=== PATIENT | male | born 1995 | race Caucasian/White ===

== ENCOUNTER 2020-04-08 20:45 | Inpatient (IN) | payer SELFPAY ==
[2020-04-08 20:49] VITALS: BMI 23.1
--- NOTE | 2020-04-08 20:57 | ECG_ITS ---
Measurements Intervals [place] Rate: 103 P: 76 NE: 136 QRS: 16 QRSD: 112 T: 42 QT: 337 QTc: 442 SINUS TACHYCARDIA INCOMPLETE RIGHT BUNDLE BRANCH BLOCK [90+ ms QRS DURATION, TERMINAL R IN V1/V2, 40+ ms S IN I/aVL/V4/V5/V6] ABNORMAL RHYTHM ECG Compared to ECG 04/17/2019 17:53:14 Sinus rhythm no longer present Sinus arrhythmia no longer present Electronically Signed On 04-09-2020 20:53:16 CDT by лОег Bangura M.D. [email or web address]
--- NOTE | 2020-04-08 20:57 | XR_ITS ---
WS: [id number] Portable AP upright chest, 04/08/2020 Clinical Data: Psychiatric clearance, overdose Comparison: Vertebral chest, 04/17/2019. Findings: No nodules, masses or effusions are seen. The heart is normal. The pulmonary vascularity is not increased. No pneumonia or pneumothorax is seen. XR/XR chest 1V portable 52100 Impression: Negative chest.
[2020-04-08 21:00] VITALS: BP 114/54; PULSE 114; RESP 17; O2SAT 97
[2020-04-08 21:54] LABS: Basophils # 0.1 10^3/uL (0.0-0.1); Basophils % 0.6 %; Eosinophils # 0.2 10^3/uL (0.0-0.8); Eosinophils % 2.4 %; Hemoglobin 15.2 g/dL (11.7-16.6); Lymphocytes # 2.5 10^3/uL (0.8-4.8); Lymphocytes % 30.1 %; Mean Corpuscular Hemoglobin 32.7 pg (28.0-34.0); Mean Corpuscular Volume 98.9 fL (80-94); Mean Platelet Volume 10.7 fL (7.4-10.4); Monocytes # 0.5 10^3/uL (0.2-0.9); Monocytes % 6.5 %; Neutrophils # 4.9 10^3/uL (1.8-7.7); Neutrophils % 59.4 %; Nucleated Red Blood Cells % 0 %; Platelet Count 267 10^3/cmm (130-400); Red Blood Count 4.65 10^6/uL (4.1-5.3); Red Cell Distribution Width 11.8 % (12.1-15.1); White Blood Count 8.2 10^3/uL (4.0-10.0)
--- NOTE | 2020-04-08 22:01 | W.ED.OVERDOS ---
HPI - Overdose General: Chief Complaint: Overdose Stated Complaint: POSSIBLE OD Time Seen by Provider: 04/08/20 20:50 Source: patient and EMS Limitations: other (Patient not cooperative) History of Present Illness: HPI Narrative: Marco A is a 24-year-old male who comes in after an overdose. He took an unknown amount of sleep aid in an effort to hurt himself. He states he was arguing with his girlfriend and became upset and did this in an effort to kill himself. He admits to trying to kill himself once before with overdose. Patient admits to drinking alcohol today as well. He denies any other ingestions. Patient's history is very limited as he is agitated and not cooperative secondary to his emotional state. Review of Systems General: Reports: ROS unobtainable due to medical condition PFSH ED PFSH: Social History Smoking and tobacco status: current every day smoker Physical Exam Const: EXAM LIMITATIONS: behavioral limitations GENERAL APPEARANCE: lethargic and odor of alcohol detected ORIENTATION/CONSCIOUSNESS: Yes lethargic HENMT: COMMON NORMALS: normocephalic, atraumatic, external ears normal, EAC's normal and Normal external nose present HEAD & SCALP: normal to inspection, normocephalic and atraumatic FACE & SINUS: normal facial exam and face symmetric NOSE: Normal external nose present and Normal nares present EXTERNAL EAR: Yes external ears normal EXTERNAL AUDITORY CANAL: EAC's normal MOUTH: Normal oral and palatal mucosa present, lip normal and tongue normal Eye: COMMON NORMALS: Equal, round and reactive pupils present and conjunctivae normal GENERAL EYE: appearance normal, both eyes and all related structures ALIGNMENT: Yes alignment normal PERIORBITAL: periorbital findings normal EYELID: eyelids normal CONJUNCTIVA: Yes conjunctivae normal SCLERA: sclerae normal PUPIL: Yes Equal, round and reactive pupils present Neck/C-Spine: COMMON NORMALS: full ROM, no lymphadenopathy, supple, no meningeal signs and no JVD GENERAL: Yes normal visual inspection and Yes trachea midline Chest: COMMONS NORMALS: normal inspection of the chest and normal palpation of entire chest wall Resp: COMMON NORMALS: normal respiratory effort, No retractions and No use of accessory muscles EFFORT & INSPECTION: Yes able to speak in complete sentences and Yes symmetric chest movement AUSCULTATION: no crackles, no rales, no rhonchi and no wheezes Cardio: COMMON NORMALS: no JVD, regular rate, regular rhythm, S1 normal heart sound present and S2 normal heart sound present RATE: regular rate RHYTHM: regular rhythm HEART SOUNDS: S1 normal heart sound present, S2 normal heart sound present, no click, no gallops, no murmurs, no rubs and abnormal split S2 GI: COMMON NORMALS: Soft to palpation and No hepatosplenomegaly present PALPATION: Yes Soft to palpation, No Tenderness to palpation present (GI), No Guarding due to palpation present (GI), No Rigid due to palpation, Yes No hepatosplenomegaly present, No Hernia present, No Palpable mass present and No Pulsatile mass present : COMMON NORMALS: Yes no CVA tenderness BLADDER/KIDNEY EXAM: Yes no CVA tenderness Back/Pelvis: COMMON NORMALS: no CVA tenderness, thoracic and lumbar spine normal to inspection, no thoracic nor lumbar tenderness and thoraco-lumbar ROM normal Extremity: COMMON NORMALS: normal to inspection, full ROM, capillary refill normal, no joint enlargement, no clubbing, cyanosis or edema and no calf tenderness Neuro: COMMON NORMALS: CN's II-XII intact bilaterally, moves all extremities, no focal motor deficits and no sensory deficits noted SENSORIUM/ORIENTATION: Yes lethargic MENINGEAL SIGNS: Yes no meningeal signs SPEECH: speech normal Psych: ATTITUDE: Yes uncooperative and Yes agitated ACTIVITY/MOTOR BEHAVIOR: Yes restless SPEECH: Yes excessive and Yes loud MOOD & AFFECT: Yes tearful THOUGHT PROCESS: disorganized and confused Skin: COMMON NORMALS: no rashes or lesions noted, turgor normal, no jaundice, no petechiae and no mottling GENERAL SKIN EXAM: no rashes or lesions noted and turgor normal Course ED course: 1999 -Case reviewed with poison control and they have confirmed my suspicion that as the patient has taken so much Benadryl the absorption will be off secondary to slow GI motility. They concur with ICU admission and clearance overnight with psychiatric evaluation after. Vital Signs: Vital signs: Vital Signs Pulse Rate 102 H 04/08/20 22:03 Respiratory Rate 25 H 04/08/20 22:03 Blood Pressure 111/66 04/08/20 22:03 Pulse Oximetry 95 04/08/20 22:03 MDM - Overdose Lab Data: Labs: Lab Results 06/10/20 06/10/20 06/10/20 Range/Units 21:18 21:18 21:18 WBC 8.2 (4.0-10.0) 10^3/ uL RBC 4.65 (4.1-5.3) 10^6/u L Hgb 15.2 (11.7-16.6) g/dL Hct 46.0 (42.0-52.0) % MCV 98.9 H (80-94) fL MCH 32.7 (28.0-34.0) pg MCHC 33.0 (30.0-36.0) g/dL RDW 11.8 L (12.1-15.1) % Plt Count 267 (130-400) 10^3/c mm MPV 10.7 H (7.4-10.4) fL Neut % (Auto) 59.4 % Lymph % (Auto) 30.1 % [place] % (Auto) 6.5 % Eos % (Auto) 2.4 % Baso % (Auto) 0.6 % Neut # (Auto) 4.9 (1.8-7.7) 10^3/u L Lymph # (Auto) 2.5 (0.8-4.8) 10^3/u L [place] # (Auto) 0.5 (0.2-0.9) 10^3/u L Eos # (Auto) 0.2 (0.0-0.8) 10^3/u L Baso # (Auto) 0.1 (0.0-0.1) 10^3/u L Nucleated RBC % (a uto) 0 % Nucleated RBCs # 0.0 /100WBC Sodium 141 (136-145) mmol/L Potassium 3.9 (3.5-5.1) mmol/L Chloride 106 (98-107) mmol/L Carbon Dioxide 20 L (22-29) mmol/L Anion Gap 18.9 (5-19) BUN 9 (6-20) mg/dL Creatinine 0.9 (0.7-1.2) mg/dL GFR Calculation 104.6 (90-130) mL/min Glucose 109 (65-115) mg/dL Calculated Osmolal ity 289 (285-295) mOsm/k g Calcium 9.1 (8.5-10.5) mg/dL Magnesium 2.3 (1.7-2.3) mg/dL Total Bilirubin 0.2 (0.15-1.2) mg/dL AST 23 (0-40) U/L ALT 23 (0-41) U/L Alkaline Phosphata se 125 (40-130) IU/L Creatine Kinase 182 (39-308) U/L Total Protein 7.0 (6.6-8.7) g/dL Albumin 4.7 (3.5-5.2) g/dL Globulin 2.3 (1.3-4.6) g/dL TSH 0.93 (0.27-4.20) uIU/ mL Salicylates < 0.3 L (3-10) mg/dL Urine Opiates Scre en (Negative) ng/mL Acetaminophen < 5.0 L (10-30) ug/mL Ur Barbiturates Sc reen (Negative) ng/mL Phenytoin 0.8 L (10-20) ug/mL Valproic Acid 2.8 L (50-100) ug/mL Carbamazepine 2.0 L (4.0-12.0) ug/mL Ur Phencyclidine S crn (Negative) ng/mL Ur Amphetamines Sc reen (Negative) ng/mL U Benzodiazepines Scrn (Negative) ng/mL [place] 0.1 L (0.6-1.2) mmol/L Urine Cocaine Scre en (Negative) ng/mL U Marijuana (THC) Screen (Negative) ng/mL Ethyl Alcohol 64 H (0-10) mg/dL 04/08/20 Range/Units 22:02 WBC (4.0-10.0) 10^3/ uL RBC (4.1-5.3) 10^6/u L Hgb (11.7-16.6) g/dL Hct (42.0-52.0) % MCV (80-94) fL MCH (28.0-34.0) pg MCHC (30.0-36.0) g/dL RDW (12.1-15.1) % Plt Count (130-400) 10^3/c mm MPV (7.4-10.4) fL Neut % (Auto) % Lymph % (Auto) % [place] % (Auto) % Eos % (Auto) % Baso % (Auto) % Neut # (Auto) (1.8-7.7) 10^3/u L Lymph # (Auto) (0.8-4.8) 10^3/u L [place] # (Auto) (0.2-0.9) 10^3/u L Eos # (Auto) (0.0-0.8) 10^3/u L Baso # (Auto) (0.0-0.1) 10^3/u L Nucleated RBC % (a uto) % Nucleated RBCs # /100WBC Sodium (136-145) mmol/L Potassium (3.5-5.1) mmol/L Chloride (98-107) mmol/L Carbon Dioxide (22-29) mmol/L Anion Gap (5-19) BUN (6-20) mg/dL Creatinine (0.7-1.2) mg/dL GFR Calculation (90-130) mL/min Glucose (65-115) mg/dL Calculated Osmolal ity (285-295) mOsm/k g Calcium (8.5-10.5) mg/dL Magnesium (1.7-2.3) mg/dL Total Bilirubin (0.15-1.2) mg/dL AST (0-40) U/L ALT (0-41) U/L Alkaline Phosphata se (40-130) IU/L Creatine Kinase (39-308) U/L Total Protein (6.6-8.7) g/dL Albumin (3.5-5.2) g/dL Globulin (1.3-4.6) g/dL TSH (0.27-4.20) uIU/ mL Salicylates (3-10) mg/dL Urine Opiates Scre en Negative (Negative) ng/mL Acetaminophen (10-30) ug/mL Ur Barbiturates Sc reen Negative (Negative) ng/mL Phenytoin (10-20) ug/mL Valproic Acid (50-100) ug/mL Carbamazepine (4.0-12.0) ug/mL Ur Phencyclidine S crn Negative (Negative) ng/mL Ur Amphetamines Sc reen Negative (Negative) ng/mL U Benzodiazepines Scrn Negative (Negative) ng/mL [place] (0.6-1.2) mmol/L Urine Cocaine Scre en Negative (Negative) ng/mL U Marijuana (THC) Screen Positive H (Negative) ng/mL Ethyl Alcohol (0-10) mg/dL EKG Data^: EKG 1: Attestation: I personally reviewed and interpreted this EKG as follows: EKG interpretation date: 04/08/20 EKG interpretation time: 22:01 Interpretation: Normal sinus rhythm at 103 beats a minute, incomplete right bundle branch block, normal axis, no acute ST or T wave changes. Discharge Plan Discharge Patient Disposition: Admitted As Inpatient Clinical Impression: Drug overdose, Suicidal ideation Condition: Stable Coding Level of Care Code ED Cream Separator Operator for Chg Fwd Exam Comprehensive
[2020-04-08 22:03] VITALS: BP 111/66; PULSE 102; RESP 25; O2SAT 95
[2020-04-08 22:03] LABS: Alanine Aminotransferase 23 U/L (0-41); Albumin Level 4.7 g/dL (3.5-5.2); Alcohol Level 64 mg/dL (0-10); Alkaline Phosphatase 125 IU/L (40-130); Anion Gap 18.9 (5-19); Aspartate Amino Transferase 23 U/L (0-40); Blood Urea Nitrogen 9 mg/dL (6-20); Calcium 9.1 mg/dL (8.5-10.5); Carbon Dioxide 20 mmol/L (22-29); Chloride 106 mmol/L (98-107); Creatine Phosphokinase 182 U/L (39-308); Creatinine Clr Calc Pharmacy 148.0173; Globulin 2.3 g/dL (1.3-4.6); Glomerular Filtration Rate 104.6 mL/min (90-130); Glucose 109 mg/dL (65-115); Magnesium 2.3 mg/dL (1.7-2.3); Osmolality Calculated 289 mOsm/kg (285-295); Phenytoin Dilantin 0.8 ug/mL (10-20); Potassium 3.9 mmol/L (3.5-5.1); Sodium 141 mmol/L (136-145); Thyroid Stimulating Hormone 0.93 uIU/mL (0.27-4.20); Total Bilirubin 0.2 mg/dL (0.15-1.2); Valproic Acid Level 2.8 ug/mL (50-100)
[2020-04-08 22:05] LABS: Lithium 0.1 mmol/L (0.6-1.2)
[2020-04-08] MEDS: sodium chloride 0.9% 1,000 ML 100 ML IV (22:06)
[2020-04-08 22:10] LABS: Acetaminophen < 5.0 ug/mL (10-30); Salicylate < 0.3 mg/dL (3-10)
[2020-04-08 22:31] LABS: Amphetamines Screen Urine Negative (Negative); Barbiturates Screen Urine Negative (Negative); Benzodiazepines Screen Urine Negative (Negative); Cocaine Screen Urine Negative (Negative); Opiate Screen Urine Negative (Negative); PCP Screen Urine Negative (Negative); THC Screen Urine Positive (Negative)
[2020-04-08 22:42] LABS: Bacteria Urine TRACE; Bilirubin Urine Neg (NEGATIVE); Blood Urine Neg (Negative); Glucose Urine UA Norm (Normal); Ketones Urine 1+ (Negative); Leukocyte Esterase Urine Negative (Negative); Nitrate Urine Negative (Negative); Protein Urine Neg (Negative); RBC Urine RARE /hpf (0-2); Specific Gravity, Urine 1.025 (1.005-1.030); Squamous Epithelial Cell Urine RARE (0-5); Urine Appearance Clear (CLEAR); Urine Color Yellow (Yellow); Urobilinogen Urine Norm (Negative); WBC Urine RARE /hpf (0-5); pH Urine 5 (5-7)
--- NOTE | 2020-04-08 23:16 | P.HP_ITS ---
Providers/Chief Complaint Chief Complaint: POSSIBLE OD History of Present Illness Marco A Paulino is a 24 year old male who has a history of suicidal ideation in the past as well, he was seen by a psychiatrist in the past, at that time he was incarcerated and took Benadryl and ibuprofen he was discharged on Lamictal, came in today with a suicidal attempt. Patient is stating that she had an argument with her girlfriend, it made him really mad, it took 25 mg Benadryl multiple tablets, patient is stating half of the bottle, he uses 2 to 3 tablets for his insomnia on daily basis. He is not on any antidepressant. He smokes marijuana, cigarettes about 1 to 1.5 packs/day, 6-7 shots of whiskey every day. Police was called on him by his girlfriend. Girlfriend estimated about 40 to 50 tablets of Benadryl the bottle. Diagnostics in the ER revealed systolic blood pressure 1 35-1 40s, heart rate 89 to 90s, poison control recommended monitoring overnight in the ICU because of Benadryl anticholinergic effects At the time of my interview patient was asking for food and was calm Review of Systems Const: Denies: fever(s) or chills Eyes: Denies: change in vision ENMT: Denies: throat pain Card: Denies: chest pain Resp: Denies: dyspnea GI: Denies: abdominal pain : Denies: flank pain Musc: Denies: neck pain Skin/Breast: Denies: rash Neuro: Denies: headache(s) Psych: Reports: anxiety, mood swings, panic attacks and suicidal ideation Endo: Denies: polyuria Mikey/Lymph: Denies: easy bruising All/Imm: Denies: urticaria PFSH Acute PFSH: Medical History Major depressive disorder Suicidal behavior with attempted self-injury Surgical History H/O adenoidectomy H/O foot surgery Hx of tonsillectomy Myringotomy tube status Family History Other Diabetes Social History Smoking and tobacco status: heavy tobacco smoker cigarettes [ Other cigarette details: 1 to 1.5 pack per day ] Alcohol intake: current Substance/Drug Use: current Substance/Drug use type: Marijuana Housing: House Vitals/I&O/Wt Last Vital Signs Pulse 102 H 04/08/20 22:03 Resp 25 H 04/08/20 22:03 BP 111/66 04/08/20 22:03 Pulse Ox 95 04/08/20 22:03 Weight last 48 hrs Weight 81.647 kg Physical Exam Narrative: EXAM NARRATIVE: Head to toe examination Young male sitting comfortably in his bed Saturating well on room air, mild tachycardia and hypertension No signs of mood irritability Very cooperative Multiple body skin tattoos S1, S2 sinus tachycardia Abdomen soft nontender nondistended Neurologically nonfocal exam Appropriate mood and affect Endorses suicidal ideation No sign of ischemia gangrene ulcer of lower extremity No respiratory distress Data : 04/08/20 21:18 04/08/20 21:18 A&P Assessment and plan (1) Suicidal behavior with attempted self-injury: Status: Acute (2) Suicidal ideation: Status: Acute (3) Drug overdose: Status: Acute Qualifiers: Encounter type: initial encounter Injury intent: intentional self-harm Qualified Code(s): T50.902A - Poisoning by unspecified drugs, medicaments and biological substances, intentional self-harm, initial encounter (4) Polysubstance abuse: Status: Acute Additional A&P Information Drug overdose with suicidal attempt -History of major depressive disorder -Monitor denies -96-hour hold -Monitor for anticholinergic effect -Would use Ativan if needed -I do not see any emotional or neurological aggravation, would start him on diet Polysubstance abuse Smokes marijuana Smokes 1.5 to 2 packs a day, not ready to quit Alcohol abuse, 6-7 shots of whiskey every day, no history of withdrawal I would start him on thiamine and folic acid DVT prophylaxis not needed as he is low risk Regular 96-hour hold Attestations Medical Necessity Statement*: Anticipating stay in the hospital to cross more than 2 midnights currently on 96-hour hold for suicidal ideation and drug overdose, needs ICU for closer monitoring because of Benadryl anticholinergic effect Time Spent in Patient Care: 50mins Coding Level of Care Code Acute Tile Power Shear Operator for [facility] Diagnoses Suicidal behavior with attempted self-injury T14.91XA Suicidal ideation R45.851 Drug overdose T50.902A Encounter type: initial encounter Injury intent: intentional self-harm Polysubstance abuse F19.10
[2020-04-08 23:19] VITALS: BP 113/87; PULSE 92; RESP 20; O2SAT 95
[2020-04-08 23:43] VITALS: BP 135/78; PULSE 97; RESP 21; O2SAT 97
[2020-04-09] VITALS (20 sets, daily range): BP systolic 96–144; BP diastolic 45–90; PULSE 56–123; RESP 15–27; TEMP 36.2–36.8; O2SAT 86–100; BMI 23.1
[2020-04-09] MEDS: dextrose 5%-sod chloride 0.45% 1,000 ML 100 ML IV (00:11)
[2020-04-09 05:31] LABS: Basophils # 0.1 10^3/uL (0.0-0.1); Basophils % 0.5 %; Eosinophils # 0.2 10^3/uL (0.0-0.8); Eosinophils % 1.9 %; Hematocrit 43.9 % (42.0-52.0); Hemoglobin 14.3 g/dL (11.7-16.6); Lymphocytes # 3.3 10^3/uL (0.8-4.8); Lymphocytes % 34.1 %; Mean Corpuscular HGB Conc 32.6 g/dL (30.0-36.0); Mean Corpuscular Hemoglobin 32.3 pg (28.0-34.0); Mean Corpuscular Volume 99.1 fL (80-94); Monocytes # 0.7 10^3/uL (0.2-0.9); Monocytes % 7.3 %; Neutrophils # 5.4 10^3/uL (1.8-7.7); Neutrophils % 55.7 %; Nucleated Red Blood Cells % 0 %; Platelet Count 209 10^3/cmm (130-400); Red Blood Count 4.43 10^6/uL (4.1-5.3); Red Cell Distribution Width 11.8 % (12.1-15.1); White Blood Count 9.8 10^3/uL (4.0-10.0)
[2020-04-09 05:58] LABS: Alanine Aminotransferase 22 U/L (0-41); Albumin Level 3.9 g/dL (3.5-5.2); Alkaline Phosphatase 115 IU/L (40-130); Anion Gap 14.7 (5-19); Aspartate Amino Transferase 22 U/L (0-40); Blood Urea Nitrogen 9 mg/dL (6-20); Calcium 8.9 mg/dL (8.5-10.5); Carbon Dioxide 26 mmol/L (22-29); Chloride 104 mmol/L (98-107); Globulin 2.7 g/dL (1.3-4.6); Glomerular Filtration Rate 119.8 mL/min (90-130); Glucose 120 mg/dL (65-115); Osmolality Calculated 289 mOsm/kg (285-295); Potassium 3.7 mmol/L (3.5-5.1); Sodium 141 mmol/L (136-145); Total Bilirubin 0.2 mg/dL (0.15-1.2); Total Protein 6.6 g/dL (6.6-8.7)
[2020-04-09] MEDS: folic acid 1 mg Tablet PO (09:46)
[2020-04-09] MEDS: thiamine 100 mg Tablet PO (09:46)
--- NOTE | 2020-04-09 10:58 | P.PN_ITS ---
Subjective Subjective: Interval history: Chart reviewed, hemodynamically stable, intermittent tachycardia overnight, labs stable, on 96-hour hold. Denies SI currently, denies having taken any medications including benadryl, he reportedly lied about this to avoid going to long-term due to some outstanding warrants. UDS was negative for benzos. No complaints otherwise, sitter at bedside. Medications: Reviewed: Yes Medication Review Details: Active Medications Generic Name Dose Route Start Last Admin Trade Name Freq PRN Reason Stop Dose Admin Folic Acid 1 mg 04/09/20 09:00 04/09/20 09:46 Folic Acid PO 1 mg DAILY CARO Administration Lorazepam 2 mg 04/09/20 10:56 Ativan IM PROTOCOL PRN ALCOWD Protocol Lorazepam 2 mg 04/09/20 10:56 Ativan PO PROTOCOL PRN WITHDRAWAL Protocol Multivitamins Ther apeutic 1 tab 04/09/20 11:00 Multivitamin Tab PO DAILY CARO Nicotine 1 patch 04/09/20 10:55 Nicoderm 21 Mg P atch TRANSDERMA DAILY CARO Ondansetron HCl 4 mg 04/09/20 00:05 Zofran IVP Q6H PRN NAUSEA AND VOMITI NG Thiamine Mononitra te 100 mg 04/09/20 09:00 04/09/20 09:46 Vitamin B-1 PO 100 mg DAILY CARO Administration Vitals/I&O/Wt Last Vital Signs Pulse 64 04/09/20 06:00 Resp 18 04/09/20 06:00 BP 101/45 04/09/20 06:00 Pulse Ox 98 04/09/20 06:00 Weight last 48 hrs Weight 81.647 kg Physical Exam Const: COMMON NORMALS: no acute distress, patient oriented x3 and alert GENERAL APPEARANCE: cooperative and comfortable ORIENTATION/CONSCIOUSNESS: Yes awake HENMT: COMMON NORMALS: normocephalic, atraumatic, hearing grossly normal bilaterally and moist oral mucous membranes HEAD & SCALP: normocephalic and atraumatic TEETH & GINGIVA: Yes poor dentition Eye: COMMON NORMALS: Equal, round and reactive pupils present, EOMs intact bilaterally and conjunctivae normal CONJUNCTIVA: Yes conjunctivae normal PUPIL: Yes Equal, round and reactive pupils present Neck/C-Spine: COMMON NORMALS: full ROM GENERAL: Yes normal visual inspection and Yes trachea midline Chest: CHEST: Yes Symmetrical chest wall rise Resp: COMMON NORMALS: normal respiratory effort, No retractions, No use of accessory muscles and clear to auscultation bilaterally EFFORT & INSPECTION: Yes able to speak in complete sentences, Yes symmetric chest movement and No tachypneic AUSCULTATION: clear to auscultation bilaterally OTHER: -on RA Cardio: COMMON NORMALS: regular rate, regular rhythm, S1 normal heart sound present, S2 normal heart sound present and No murmurs present (Cardio) RATE: regular rate RHYTHM: regular rhythm HEART SOUNDS: S1 normal heart sound present and S2 normal heart sound present GI: COMMON NORMALS: Normal to inspection, nondistended, normoactive bowel sounds present, Soft to palpation and non-tender PALPATION: Yes Soft to palpation Extremity: COMMON NORMALS: normal to inspection, full ROM, no clubbing, cyanosis or edema and no pedal edema Neuro: COMMON NORMALS: patient oriented x3, moves all extremities, no focal motor deficits, no sensory deficits noted and gait normal SENSORIUM/ORIENTATION: Yes alert Psych: COMMON NORMALS: mental status grossly normal, Normal thought process present, cooperative, normal affect and speech normal ATTITUDE: Yes calm ACTIVITY/MOTOR BEHAVIOR: Yes appropriate eye contact SPEECH: Yes normal speech THOUGHT PROCESS: Normal thought process present THOUGHT CONTENT: No Suicidality present and No Homicidality present Skin: COMMON NORMALS: no rashes or lesions noted, no jaundice, no petechiae and no mottling GENERAL SKIN EXAM: no rashes or lesions noted Data : 04/09/20 05:10 04/09/20 05:10 A&P Assessment and plan (1) Suicidal behavior with attempted self-injury: -Reported ingestion of multiple tablets of Benadryl with intention of self-harm which he now states was a false claim to avoid going to long-term. UDS is negative for benzos which makes the latter more likely. Review of medical record shows that he has had SI with medication overdose in the past -Telemetry monitoring -Poison control contacted, recommended monitoring for anticholinergic effects -96-hour hold, sitter at bedside -Noted toxicology, positive THC, negative salicylates, acetaminophen, subtherapeutic levels of antiseizure medications -discussed with genny Garrison to transfer to [facility] this afternoon Status: Acute (2) Polysubstance abuse: -THC and alcohol use -UDS positive for THC Status: Chronic (3) Smoker: -1-2 PPD smoker -nicotine replacement therapy Status: Chronic (4) Alcohol abuse: -EtOH level-64 -CIWA protocol -MVI, folic acid, thiamine daily -fall, seizure, aspiration precautions Status: Chronic Additional A&P Information -regular diet as tolerated -Dispo: Psych -Code status: FULL code -medically stable for NPU transfer Attestations Medical Necessity Statement*: Patient requires hospitalization for continued management status post intentional medication overdose, pending psychiatric evaluation, transfer to N[facility] this afternoon. Time Spent in Patient Care: Greater than 35 minutes (>than 50% of time spent in counselling and/or direct pt care on unit) . Coding Level of Care Code Acute Logistics Administrator for [facility] Fwd Exam Comprehensive Diagnoses Suicidal behavior with attempted self-injury T14.91XA Polysubstance abuse F19.10 Smoker F17.200 Alcohol abuse F10.10
[2020-04-09] MEDS: nicotine 21 mg Patch 1 PATCH TRANSDERMA (11:39)
[2020-04-09] MEDS: multivitamin therapeutic Tablet 1 TAB PO (11:39)
[2020-04-09] MEDS: LORazepam 2 mg Tablet PO (11:42)
--- NOTE | 2020-04-09 12:46 | PC.NURSE ---
PATIENT COMPLAINS OF NEEDING A NICOTENE PATCH. EATING WELL. ADMITS THAT HE DID NOT TAKE THE DRUGS TO HURT HIMSELF, IN FACT HE NEVER TOOK ANY . HE DID IT TO NOT HAVE TO GO TO RETIREMENT. HIS MOTHER STATES HE HAS A HISTORY OF PVCS AND ADD. SHE FEELSS IT IS EITHER METH USE OR BIPOLAR ISSUES THAT MAKE HIM SO MEAN AT TIMES. HE WANTS TO GO HOME AND GET TO WORK
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
--- NOTE | 2020-04-09 15:45 | PC.NURSE ---
IV SITES REMOVED. AWAITING TRANSFER ROOM. PATIENT SAID HE WANTED TO BOLT SO HE WOULD NOT MISS WORK. WE DISCUSSED THAT HE SHOULD OF THOUGHT OF THAT WHEN HE THREATENED SUICIDE HE IS ON A LEGAL 96 HR HOLD AND SHOULD TAKE THE TIME TO DISCUSS HIS REAL ISSUES. PATIENT AGREED THAT HE MAY BE BIPOLAR.
--- NOTE | 2020-04-09 17:23 | PC.NURSE ---
patient took tennis shoes and shorts with him to the npu. no other belongings were present
[2020-04-09] MEDS: nicotine 2 mg Gum BUCCAL ×2 (18:18→21:41)
[2020-04-09] MEDS: trazodone 50 mg Tablet PO (21:41)
[2020-04-10 06:00] VITALS: BP 99/54; PULSE 68; RESP 16; TEMP 36.6; O2SAT 98
--- NOTE | 2020-04-10 08:04 | P.HP_ITS ---
Providers/Chief Complaint Admitting Physician: Margaux Rhodes MD Chief Complaint: POSSIBLE OD HPI NPU History of Present Illness Chief complaint: Honestly, I was just trying to get out of retirement. I did not overdose. It was a stupid thing to do. History of present illness:Marco A Paulino is a 24 year old male who was brought to the emergency room from retirement when he informed the constable that he had overdosed on Benadryl. He was placed in the intensive care unit for observation. At no time did he present any type of medical instability. He was then transferred to the psychiatric unit for further assessment. Marco A states that he did not overdose on Benadryl. He states that he did not overdose on anything. He had been picked up for outstanding warrants. Public record reveals that he has picked been arrested 3 times for not wearing his seatbelt. He states that he was told by somebody else in retirement that he could tell the marble installer supervisor that he had overdosed on Benadryl and that he was thinking about killing himself and that he would be taken to the hospital and at least released on his own recognizance. He now realizes that is untrue and that it was a foolish thing to do and he will never do it again. His urine drug screen was positive for marijuana and alcohol. He denies suicidal or homicidal ideation. He denies the presence of auditory or visual hallucinations. He has good hedonic capacity. He is looking forward to getting back to work later today. He works at the local [employer] . He is negative for any history of manic symptoms. He denies the presence of significant alcohol or substance use. His blood alcohol level on admission was 64. He was positive for marijuana. ICU evaluation:Marco A Paulino is a 24 year old male who has a history of suicidal ideation in the past as well, he was seen by a psychiatrist in the past, at that time he was incarcerated and took Benadryl and ibuprofen he was discharged on Lamictal, came in today with a suicidal attempt. Patient is stating that she had an argument with her girlfriend, it made him really mad, it took 25 mg Benadryl multiple tablets, patient is stating half of the bottle, he uses 2 to 3 tablets for his insomnia on daily basis. He is not on any antidepressant. He smokes marijuana, cigarettes about 1 to 1.5 packs/day, 6-7 shots of whiskey every day. Police was called on him by his girlfriend. Girlfriend estimated ab out 40 to 50 tablets of Benadryl the bottle. Diagnostics in the ER revealed systolic blood pressure 1 35-1 40s, heart rate 89 to 90s, poison control recommended monitoring overnight in the ICU because of Benadryl anticholinergic effects At the time of my interview patient was asking for food and was calm Mental health history: No history of mental health treatment of any kind. He has never been in counseling. He has never seen a psychiatrist. He has never been admitted to the mental health program. He has never been on medications for mental health reasons. Social history: The patient is a lifelong resident of [place]. He is a high school graduate. He is actively employed. He lives with his girlfriend and his infant daughter. Legal history: Public record states that he has 3 prior infractions for not wearing seatbelts. He also says that he was arrested 1 time for not having insurance on his car. Past medical history: Allergies: He says that he is allergic to Toradol but states that he has never had Toradol. He says his mother has had Toradol and she was allergic to it and so he was told to always tell people that he was allergic to Toradol as well. Medications: None Medical problems: None Surgeries: Reattachment of an Achilles tendon that he ruptured using a power line installer while removing asphalt from heavy equipment. Review of Systems Narrative: Review of Systems Constitutional: Denies: Fatigue Eyes: Complains of: No eye symptoms ENT/Mouth: Complains of: No ENTM symptoms Cardiovascular: Complains of: No cardiac symptoms Respiratory: Complains of: No respiratory symptoms GI: Complains of: No GI symptoms Neuro: Complains of: No neuro symptoms Musculoskeletal: Complains of: No musculoskeletal symptoms Skin: Complains of: No skin symptoms Hematologic/Lymphatic: Complains of: No hematologic/lymphatic symptoms Endocrine: Complains of: No endocrine symptoms : Complains of: No symptoms Psych: Denies: Depression, Suicide ideation Meds NPU Home Medications Medication Instructions Recorded Confirmed Last Taken Type No Known Home Medications 04/09/20 04/09/20 Unknown History Allergies Allergy/AdvReac Type Severity Reaction Status Date / Time ketorolac Allergy Unknown Unknown Verified 04/09/20 15:15 Penicillins Allergy Unknown Unknown Verified 04/09/20 15:15 PFSH NPU PFSH: Medical History (Updated 04/09/20 @ 11:02 by Tammy Samayoa MD) Major depressive disorder Smoker Suicidal behavior with attempted self-injury Surgical History H/O adenoidectomy H/O foot surgery Hx of tonsillectomy Myringotomy tube status Family History Other Diabetes Social History Smoking and tobacco status: heavy tobacco smoker cigarettes [ Other cigarette details: 1 to 1.5 pack per day ] Alcohol intake: current Substance/Drug Use: current Substance/Drug use type: Marijuana Housing: House Mental Status Exam MSE Comments: Mental Status Exam: Appearance: hygiene is good; no gross neurological deficits., gait is unre markable; AIMS=0 Speech: Speech is of normal rate and rhythm and easily understood. Thought processes: Thought processes are abstract. Judgment is adequate for safety. Associations: intact Psychotic processes: There is no indication of guarding or paranoia. There is no attention to the internal stimuli. Auditory and visual hallucinations are denied. Judgment: Insight is fair. Problem solving skills are adequate for safety. Orientation: The patient is oriented to person, place time and situation. Memory: no deficits noted in immediate, intermediate, or remote spheres. Attention: The patient is alert and interpersonally engaged. Language: Verbalizations are coherent. Fund of knowledge: Fund of knowledge is adequate. Affect/Mood: Affect is consistent with a euthymic mood. denied suicidal ideation Affective range is appropriate. Psychosis: perception unimpaired except through cognitive distortion; reality testing intact. Vitals/I&O/Wt Last Vital Signs Temp 97.8 F 04/10/20 06:00 Pulse 68 04/10/20 06:00 Resp 16 04/10/20 06:00 BP 99/54 04/10/20 06:00 Pulse Ox 98 04/10/20 06:00 Weight last 48 hrs Weight 81.647 kg Weight 81.647 kg Data NPU : 04/09/20 05:10 04/09/20 05:10 A&P Additional A&P Information Patient is being discharged home so that he can get to work and not lose his job. He agrees to never do such a thing again and acknowledges that being in the hospital was worse than being in retirement anyway. Involuntary Hold Information 96 Hour Hold: 96 Hour Involuntary Admission: Yes 96 Hour Hold Ending Date: 04/14/20 96 Hour Hold Ending Time: 20:46 Attestations NPU Medical Necessity Statement*: Patient is being discharged home. Coding Level of Care Code Acute Speech Therapist Early Intervention for Kita Guo
--- NOTE | 2020-04-10 08:15 | P.DS_ITS ---
Diagnoses at Discharge Discharge Diagnosis (1) Polysubstance abuse: Status: Chronic (2) Smoker: Status: Chronic (3) Alcohol abuse: Status: Chronic Reason for Visit Reason for Visit: POSSIBLE OD Hospital Course Hospital Course Chief complaint: Honestly, I was just trying to get out of [facility]. I did not overdose. It was a stupid thing to do. History of present illness:Marco A Paulino is a 24 year old male who was brought to the emergency room from [facility] when he informed the constable that he had overdosed on Benadryl. He was placed in the intensive care unit for observation. At no time did he present any type of medical instability. He was then transferred to the psychiatric unit for further assessment. Marco A states that he did not overdose on Benadryl. He states that he did not overdose on anything. He had been picked up for outstanding warrants. Public record reveals that he has picked been arrested 3 times for not wearing his seatbelt. He states that he was told by somebody else in [facility] that he could tell the discharge planner that he had overdosed on Benadryl and that he was thinking about killing himself and that he would be taken to the hospital and at least released on his own recognizance. He now realizes that is untrue and that it was a foolish thing to do and he will never do it again. His urine drug screen was positive for marijuana and alcohol. He denies suicidal or homicidal ideation. He denies the presence of auditory or visual hallucinations. He has good hedonic capacity. He is looking forward to getting back to work later today. He works at the local [employer] . He is negative for any history of manic symptoms. He denies the presence of significant alcohol or substance use. His blood alcohol level on admission was 64. He was positive for marijuana. ICU evaluation:Marco A Paulino is a 24 year old male who has a history of suicidal ideation in the past as well, he was seen by a psychiatrist in the past, at that time he was incarcerated and took Benadryl and ibuprofen he was discharged on Lamictal, came in today with a suicidal attempt. Patient is stating that she had an argument with her girlfriend, it made him really mad, it took 25 mg Benadryl multiple tablets, patient is stating half of the bottle, he uses 2 to 3 tablets for his insomnia on daily basis. He is not on any antidepressant. He smokes marijuana, cigarettes about 1 to 1.5 packs/day, 6-7 shots of whiskey every day. Police was called on him by his girlfriend. Girlfriend estimated about 40 to 50 tablets of Benadryl the bottle. Diagnostics in the ER revealed systolic blood pressure 1 35-1 40s, heart rate 89 to 90s, poison control recommended monitoring overnight in the ICU because of Benadryl anticholinergic effects At the time of my interview patient was asking for food and was calm Mental health history: No history of mental health treatment of any kind. He has never been in counseling. He has never seen a psychiatrist. He has never been admitted to the mental health program. He has never been on medications for mental health reasons. Social history: The patient is a lifelong resident of [place]. He is a high school graduate. He is actively employed. He lives with his girlfriend and his infant daughter. Legal history: Public record states that he has 3 prior infractions for not wearing seatbelts. He also says that he was arrested 1 time for not having insurance on his car. Past medical history: Allergies: He says that he is allergic to Toradol but states that he has never had Toradol. He says his mother has had Toradol and she was allergic to it and so he was told to always tell people that he was allergic to Toradol as well. Medications: None Medical problems: None Surgeries: Reattachment of an Achilles tendon that he ruptured using a powerhouse mechanic apprentice while removing asphalt from heavy equipment. Involuntary Hold Information 96 Hour Hold: 96 Hour Involuntary Admission: Yes 96 Hour Hold Ending Date: 04/14/20 96 Hour Hold Ending Time: 20:46 Mental Status Exam MSE Comments: Appearance: hygiene is good; no gross neurological deficits., gait is unremarkable; AIMS=0 Speech: Speech is of normal rate and rhythm and easily understood. Thought processes: Thought processes are abstract. Judgment is adequate for safety. Associations: intact Psychotic processes: There is no indication of guarding or paranoia. There is no attention to the internal stimuli. Auditory and visual hallucinations are denied. Judgment: Insight is fair. Problem solving skills are adequate for safety. Orientation: The patient is oriented to person, place time and situation. Memory: no deficits noted in immediate, intermediate, or remote spheres. Attention: The patient is alert and interpersonally engaged. Language: Verbalizations are coherent. Fund of knowledge: Fund of knowledge is adequate. Affect/Mood: Affect is consistent with a euthymic mood. denied suicidal ideation Affective range is appropriate. Psychosis: perception unimpaired except through cognitive distortion; reality testing intact. Discharge Data Data Completed and Pending: Completed Studies During Hospitalization Category Date Time Status XR chest 1V christiano ble [id number] Stat Exams 04/08/20 20:57 Completed Vitals: Last Vital Signs Temp 97.8 F 04/10/20 06:00 Pulse 68 04/10/20 06:00 Resp 16 04/10/20 06:00 BP 99/54 04/10/20 06:00 Pulse Ox 98 04/10/20 06:00 Discharge Plan Discharge Patient Disposition: Home, Self-Care Condition: Stable Prescriptions: No Action No Known Home Medications RF: 0 Discharge Orders: Discharge Order (Routine); Ordered 04/10/20 Ordered By: Keith Seymour Activity Restrictions/Additional Instructions: Stop using marijuana. Wearing her seatbelt. Obey the law. Do not tell lies. Do not manipulate the system and require dedicated staff to do unnecessary work for your benefit. Discharge Attestations NPU Time Spent in Discharge Care*: less than 30 min Coding Level of Care Code Acute Sales Expert Home Theater for g Fwd Diagnoses Polysubstance abuse F19.10 Smoker F17.200 Alcohol abuse F10.10
--- NOTE | 2020-04-10 08:22 | PC.NURSE ---
refused scheduled thiamine, folic acid, multivitamin, nicotine patch this morning
[2020-04-10 08:26] VITALS: BP 99/54; PULSE 68; RESP 16; TEMP 36.6; O2SAT 98
--- NOTE | 2020-04-10 12:16 | PC.RESP ---
Smoking Cessation information and a schedule of classes to patient.
--- NOTE | 2020-04-10 12:17 | PC.RESP ---
Smoking Cessation information and a schedule of classes to patient.
== END 2020-04-10 08:41 | disposition home or self-care (01) | DRG 897 ==
LOC: ER 22:37 → ICU 04-09 05:20 → NP 04-09 16:09
PROVIDERS: Emergency Medicine; Admitting Provider Internal Medicine; Visit Provider Family Medicine
DX: F10.129 Alcohol abuse with intoxication, unspecified (principal); R45.851 Suicidal ideations; F17.210 Nicotine dependence, cigarettes, uncomplicated; Y90.3 Blood alcohol level of 60-79 mg/100 ml; F12.10 Cannabis abuse, uncomplicated; F32.9 Major depressive disorder, single episode, unspecified
CPT/HCPCS: 12345; 36415; 71045; 80053; 80156; 80164; 80178; 80185; 80306; 80307; 81001; 82550; 83735; 84443; 85025; 93005; 99283; A9270; J7030; J7799

== ENCOUNTER 2020-08-02 21:54 | Inpatient (IN) | payer SELFPAY ==
[2020-08-02 22:14] VITALS: BP 138/90; PULSE 102; RESP 14; TEMP 37.2; O2SAT 97; BMI 18.6
--- NOTE | 2020-08-02 22:40 | ECG_ITS ---
[facility] Test Date: 2020-08-03 Pat Name: Marco A Paulino Department: Room: 152 Gender: Male Piano Technician: : 1995 Requested By: Lauri Au Order Number: [id number] Duong MD: Francesco Kamara M.D. Measurements Intervals [place] Rate: 90 P: 72 MA: 158 QRS: 25 QRSD: 118 T: 57 QT: 377 QTc: 463 Interpretive Statements SINUS RHYTHM MODERATE INTRAVENTRICULAR CONDUCTION DELAY [110+ ms QRS DURATION] Compared to ECG 04/08/2020 22:01:46 Intraventricular conduction delay now present Sinus tachycardia no longer present Incomplete right bundle-branch block no longer present Electronically Signed On 08-03-2020 17:27:14 CDT by Francesco Kamara M.D. [id number]
--- NOTE | 2020-08-02 22:41 | W.ED.OVERDOS ---
HPI - Overdose General: Chief Complaint: Overdose Stated Complaint: Possible OD Time Seen by Provider: 08/02/20 22:11 History of Present Illness: HPI Narrative: 25-year-old male presenting in police custody. He evidently ran from [employer], with his infant in the car. When he pulled over, he ran on foot, nearly letting his truck roll off the road. He states that he had had some drinks earlier in the day. He does not admit to drug use, but methamphetamine apparatus was found on him. He states that he took some Benadryl, a handful at around 9 PM. He complained to deputies of wanting to harm himself. The ingestion of the Benadryl was not witnessed. MD complaint: intentional overdose Onset (ago): hour(s) Time: 21:00 Timing confirmed by: other Review of Systems Const: Denies: fever(s) or chills Eyes: Denies: change in vision ENMT: Denies: swelling of lips/tongue Card: Denies: chest pain, palpitations or irregular heart rhythm Resp: Denies: dyspnea, productive cough, non-productive cough or wheezing GI: Denies: abdominal pain, nausea or vomiting : Denies: difficulty urinating Skin/Breast: Denies: rash or erythema Neuro: Denies: headache(s), dizziness or vertigo Psych: Reports: anxiety; Denies: visual hallucinations or auditory hallucinations PFSH ED PFSH: Medical History Major depressive disorder Smoker Surgical History H/O adenoidectomy H/O foot surgery Hx of tonsillectomy Myringotomy tube status Family History Other Diabetes Social History Smoking and tobacco status: heavy tobacco smoker cigarettes [ Other cigarette details: 1 to 1.5 pack per day ] Alcohol intake: current Housing: House Physical Exam Const: GENERAL APPEARANCE: anxious and disheveled ORIENTATION/CONSCIOUSNESS: Yes oriented to person and Yes oriented to place; not oriented to time HENMT: COMMON NORMALS: normocephalic, external ears normal and Normal external nose present HEAD & SCALP: normocephalic FACE & SINUS: normal facial exam NOSE: Normal external nose present and No nasal discharge present EXTERNAL EAR: Yes external ears normal Eye: COMMON NORMALS: Equal, round and reactive pupils present, EOMs intact bilaterally and conjunctivae normal EYELID: eyelids normal CONJUNCTIVA: Yes conjunctivae normal PUPIL: Yes Equal, round and reactive pupils present Neck/C-Spine: GENERAL: No tracheal deviation Chest: COMMONS NORMALS: normal inspection of the chest CHEST: No tenderness Resp: COMMON NORMALS: clear to auscultation bilaterally EFFORT & INSPECTION: No tachypneic, No respiratory distress, No retractions, No uses accessory muscles and No tracheal deviation AUSCULTATION: clear to auscultation bilaterally, no rhonchi, no wheezes and lung sounds not diminished Cardio: COMMON NORMALS: regular rate and regular rhythm RATE: regular rate RHYTHM: regular rhythm HEART SOUNDS: no murmurs PERIPHERAL PULSES: radial pulses present GI: INSPECTION: No abdominal distension AUSCULTATION: No Hyperactive bowel sounds present and No Hypoactive bowel sounds present PALPATION: No Guarding due to palpation present (GI) and No Rigid due to palpation PERCUSSION: no dullness to percussion and no tympanic to percussion Neuro: SENSORIUM/ORIENTATION: Yes oriented to person, Yes oriented to place and No oriented to time Psych: APPEARANCE: Yes disheveled ATTITUDE: Yes Guarded attititude/behavior present and Yes agitated ACTIVITY/MOTOR BEHAVIOR: Yes fidgeting and Yes Avoids eye contact (attititude/behavior) SPEECH: Yes delayed MOOD & AFFECT: Yes tearful and Yes fearful THOUGHT PROCESS: disorganized THOUGHT CONTENT: Yes Suicidality present ATTENTION/CONCENTRATION: Yes attention grossly impaired MEMORY/COGNITION: Yes cognition grossly intact INSIGHT: Limited insight present (Psych) JUDGEMENT: Limited judgement present (Psych) Skin: COMMON NORMALS: no rashes or lesions noted GENERAL SKIN EXAM: no rashes or lesions noted Course Vital Signs: Vital signs: Vital Signs Temperature 97.7 F 08/03/20 01:43 Pulse Rate 110 H 08/03/20 02:06 Respiratory Rate 16 08/03/20 02:06 Blood Pressure 122/76 08/03/20 02:06 Pulse Oximetry 98 08/03/20 02:06 MDM - Overdose MDM Narrative: Medical decision making narrative: 25-year-old male who says he is took a handful of Benadryl 5 hours ago. His EKG shows some minimal QRS widening, which is essentially stable from her prior EKG on record in March. His laboratory is essentially benign. He is exhibited no signs or symptoms of Benadryl overdose. He is not intoxicated. Spoke with the psychiatrist, who is willing to take in the NPU. Lab Data: Attestation: I reviewed the patient's lab results. Labs: Lab Results 08/02/20 08/02/20 Range/Units 23:00 23:00 WBC 8.0 (4.0-10.0) 10^3/ uL RBC 5.11 (4.1-5.3) 10^6/u L Hgb 16.0 (11.7-16.6) g/dL Hct 48.1 (42.0-52.0) % MCV 94.1 H (80-94) fL MCH 31.3 (28.0-34.0) pg MCHC 33.3 (30.0-36.0) g/dL RDW 11.9 L (12.1-15.1) % Plt Count 278 (130-400) 10^3/c mm MPV 10.6 H (7.4-10.4) fL Neut % (Auto) 64.2 % Lymph % (Auto) 25.9 % [place] % (Auto) 6.7 % Eos % (Auto) 2.4 % Baso % (Auto) 0.5 % Neut # (Auto) 5.12 (1.8-7.7) 10^3/u L Lymph # (Auto) 2.1 (0.8-4.8) 10^3/u L [place] # (Auto) 0.5 (0.2-0.9) 10^3/u L Eos # (Auto) 0.2 (0.0-0.8) 10^3/u L Baso # (Auto) 0.0 (0.0-0.1) 10^3/u L Nucleated RBC % (a uto) 0 % Nucleated RBCs # 0.0 /100WBC Sodium 139 (136-145) mmol/L Potassium 3.5 (3.5-5.1) mmol/L Chloride 104 (98-107) mmol/L Carbon Dioxide 25 (22-29) mmol/L Anion Gap 13.5 (5-19) BUN 10 (6-20) mg/dL Creatinine 1.0 (0.7-1.2) mg/dL GFR Calculation 91.8 (90-130) mL/min Glucose 117 H (65-115) mg/dL Calculated Osmolal ity 288 (285-295) mOsm/k g Calcium 9.3 (8.5-10.5) mg/dL Total Bilirubin 0.2 (0.15-1.2) mg/dL AST 19 (0-40) U/L ALT 16 (0-41) U/L Alkaline Phosphata se 135 H (40-130) IU/L Total Protein 7.2 (6.6-8.7) g/dL Albumin 4.2 (3.5-5.2) g/dL Globulin 3.0 (1.3-4.6) g/dL Salicylates < 0.3 L (3-10) mg/dL Acetaminophen < 5.0 L (10-30) ug/mL Ethyl Alcohol < 10 (0-10) mg/dL Discharge Plan Discharge Patient Disposition: Admitted As Inpatient Admit Provider: Germain Cotton Clinical Impression: Suicide attempt by drug ingestion Qualifiers: Encounter type: initial encounter Qualified Code(s): T50.902A - Poisoning by unspecified drugs, medicaments and biological substances, intentional self-harm, initial encounter Condition: Stable Interventions: ED Discharge Assessment Last Done: 08/03/20 02:06 ED Charges Last Done: 08/03/20 02:06 Discharge Date/Time: 08/03/20 01:30 Coding Level of Care Code ED [place] Roller for Kita Fwluz Exam Comprehensive
[2020-08-02 23:05] LABS: Basophils % 0.5 %; Eosinophils # 0.2 10^3/uL (0.0-0.8); Eosinophils % 2.4 %; Hematocrit 48.1 % (42.0-52.0); Lymphocytes # 2.1 10^3/uL (0.8-4.8); Lymphocytes % 25.9 %; Mean Corpuscular HGB Conc 33.3 g/dL (30.0-36.0); Mean Corpuscular Hemoglobin 31.3 pg (28.0-34.0); Mean Corpuscular Volume 94.1 fL (80-94); Mean Platelet Volume 10.6 fL (7.4-10.4); Monocytes # 0.5 10^3/uL (0.2-0.9); Monocytes % 6.7 %; Neutrophils # 5.12 10^3/uL (1.8-7.7); Neutrophils % 64.2 %; Nucleated Red Blood Cells % 0 %; Platelet Count 278 10^3/cmm (130-400); Red Blood Count 5.11 10^6/uL (4.1-5.3); Red Cell Distribution Width 11.9 % (12.1-15.1)
[2020-08-02] MEDS: sodium chloride 0.9% 1,000 ML 999 ML IV (23:06)
[2020-08-02] MEDS: LORazepam 2 mg/mL INJ 1 mL IVP (23:06)
[2020-08-02 23:24] LABS: Alanine Aminotransferase 16 U/L (0-41); Albumin Level 4.2 g/dL (3.5-5.2); Alkaline Phosphatase 135 IU/L (40-130); Anion Gap 13.5 (5-19); Aspartate Amino Transferase 19 U/L (0-40); Blood Urea Nitrogen 10 mg/dL (6-20); Calcium 9.3 mg/dL (8.5-10.5); Carbon Dioxide 25 mmol/L (22-29); Chloride 104 mmol/L (98-107); Glomerular Filtration Rate 91.8 mL/min (90-130); Glucose 117 mg/dL (65-115); Osmolality Calculated 288 mOsm/kg (285-295); Potassium 3.5 mmol/L (3.5-5.1); Sodium 139 mmol/L (136-145); Total Bilirubin 0.2 mg/dL (0.15-1.2); Total Protein 7.2 g/dL (6.6-8.7)
[2020-08-02 23:29] LABS: Acetaminophen < 5.0 ug/mL (10-30); Alcohol Level < 10 mg/dL (0-10); Salicylate < 0.3 mg/dL (3-10)
[2020-08-03 01:43] VITALS: BP 121/76; PULSE 118; RESP 16; TEMP 36.5; O2SAT 97
[2020-08-03 02:06] VITALS: BP 122/76; PULSE 110; RESP 16; O2SAT 98
[2020-08-03 06:00] VITALS: BP 122/73; PULSE 84; RESP 17; TEMP 36.3; O2SAT 97
[2020-08-03] MEDS: nicotine 21 mg Patch 1 PATCH TRANSDERMA (08:16)
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
[2020-08-03 12:32] VITALS: BP 122/73; PULSE 84; RESP 17; TEMP 36.3; O2SAT 97
--- NOTE | 2020-08-03 15:27 | PC.RESP ---
Smoking cessation information sent to patient.
== END 2020-08-03 12:35 | disposition home or self-care (01) | DRG 881 ==
LOC: ER 22:34 → NP 08-03 00:22
PROVIDERS: Admitting Provider Psychiatry & Neurology Psychiatry; Emergency Provider Emergency Medicine; Visit Provider Psychiatry & Neurology Psychiatry
DX: F32.9 Major depressive disorder, single episode, unspecified (principal); F17.210 Nicotine dependence, cigarettes, uncomplicated
CPT/HCPCS: 12345; 80053; 80307; 85025; 93005; 96375; 99282; J2060; J7030

== ENCOUNTER 2021-04-08 14:15 | Emergency (ER) | payer SELFPAY ==
[2021-04-08 14:33] VITALS: BP 121/75; PULSE 106; RESP 18; TEMP 37.1; O2SAT 96; BMI 22.4
--- NOTE | 2021-04-08 14:45 | W.ED.DENTAL ---
HPI - Dental/Oral General: Chief complaint: Dental/Oral Stated complaint: dental/oral pain Time Seen by Provider: 04/08/21 14:29 History of Present Illness: HPI Narrative: Patient is a 25-year-old male comes to the ED with dental pain. Symptoms started last night. Pain is located in the left lower jaw. Patient says he has a couple bad teeth in his back, and left molar region. He has been taking Tylenol or ibuprofen to help with pain. Denies any fever, chills, nausea/vomiting or trouble breathing. Associated symptoms: Denies fever(s) or odynophagia Review of Systems Const: Denies: fever(s), chills or fatigue Eyes: Denies: change in vision or eye discomfort ENMT: Reports: dental pain; Denies: throat pain, odynophagia, nasal discharge or nasal congestion Card: Denies: chest pain, palpitations, edema, swelling of feet/ankles, dyspnea on exertion or orthopnea Resp: Denies: dyspnea, productive cough or non-productive cough GI: Denies: abdominal pain, nausea, vomiting, diarrhea, constipation or hematochezia : Denies: flank pain, difficulty urinating, dysuria or hematuria Musc: Denies: neck pain, back pain or extremity swelling Skin/Breast: Denies: rash or new lesions Neuro: Denies: headache(s), numbness in extremities or weakness in extremities PFSH ED PFSH: Medical History Major depressive disorder Smoker Surgical History H/O adenoidectomy H/O foot surgery Hx of tonsillectomy Myringotomy tube status Family History Other Diabetes Social History Smoking and tobacco status: heavy tobacco smoker cigarettes [ Other cigarette details: 1 to 1.5 pack per day ] Alcohol intake: current Housing: House Physical Exam Const: COMMON NORMALS: no acute distress, patient oriented x3 and alert GENERAL APPEARANCE: cooperative and comfortable HENMT: COMMON NORMALS: normocephalic HEAD & SCALP: normocephalic FACE & SINUS: edema on the left mandible (Mild facial swelling) MOUTH: Normal oral and palatal mucosa present TEETH & GINGIVA: Yes caries (Multiple dental caries on tooth #17, 18 and 19) and Yes poor dentition THROAT: posterior oropharynx normal and uvula midline Eye: COMMON NORMALS: Equal, round and reactive pupils present PUPIL: Yes Equal, round and reactive pupils present Neck/C-Spine: COMMON NORMALS: supple GENERAL: Yes normal visual inspection Resp: COMMON NORMALS: normal respiratory effort, No retractions, No use of accessory muscles and clear to auscultation bilaterally AUSCULTATION: clear to auscultation bilaterally Cardio: COMMON NORMALS: regular rate, regular rhythm, S1 normal heart sound present, S2 normal heart sound present, No gallops present (Cardio), No clicks present (Cardio), No murmurs present (Cardio) and Peripheral pulses 2+ throughout RATE: regular rate RHYTHM: regular rhythm HEART SOUNDS: S1 normal heart sound present and S2 normal heart sound present PERIPHERAL PULSES: Peripheral pulses 2+ throughout GI: COMMON NORMALS: Normal to inspection, nondistended, normoactive bowel sounds present, Soft to palpation, non-tender and no masses PALPATION: Yes Soft to palpation : COMMON NORMALS: Yes no CVA tenderness BLADDER/KIDNEY EXAM: Yes no CVA tenderness Back/Pelvis: COMMON NORMALS: no CVA tenderness Extremity: COMMON NORMALS: normal to inspection Neuro: COMMON NORMALS: patient oriented x3 and moves all extremities SENSORIUM/ORIENTATION: Yes alert Skin: GENERAL SKIN EXAM: dry skin Course Vital Signs: Vital signs: Vital Signs Temperature 98.8 F 04/08/21 14:33 Pulse Rate 106 H 04/08/21 14:33 Respiratory Rate 18 04/08/21 15:08 Blood Pressure 121/75 04/08/21 14:33 Pulse Oximetry 96 04/08/21 14:33 MDM - Dental/Oral MDM Narrative: Medical decision making narrative: 25-year-old male comes to the ED with dental pain. Patient has extensive dental caries and poor dentition. Patient was discharged home on clindamycin and told the contact the dentist and set up an appoint with them for further evaluation. Return ED precautions given. Patient understood agree with plan. Discharge Plan Discharge Patient Disposition: Home Clinical Impression: Pain due to dental caries Condition: Stable Prescriptions: New clindamycin HCl 150 mg capsule 300 mg PO QID 7 Days Qty: 56 RF: 0 No Action Tylenol Extra Strength 500 mg Tablet 1,000 mg PO PRN RF: 0 Discharge Orders: Discharge ED (Routine); Ordered 04/08/21 Ordered By: Roe Santiago Discharge Diet: Regular Discharge Activity: Resume usual activity Patient Instructions: Dental Caries (ED) Activity Restrictions/Additional Instructions: Follow-up with medical provider as directed. Contact dentist and set up an appoint with him for further evaluation. Take medications as prescribed. Take [id number] Tylenol and/or ibuprofen to help with pain. Return to the ER or your medical provider if condition worsens. Please read and understand discharge instructions. Thank you for choosing [facility] for your healthcare needs today. Please realize this is an emergency room and that we are providing you with a medical screening exam and this may not be complete and all inclusive of all the testing and or work up that you may need to determine your ailment or severity of your illness. It is very important that you follow up as instructed or that you return to the Emergency Department should you have concerns or if your condition changes or worsens in any way. Coding Level of Care Code ED Consulting Practice Director for Kita Guo Exam Comprehensive
[2021-04-08] MEDS: HYDROcodone-acetaminophen 7.5-325 mg Tablet 1 TAB PO (15:04)
[2021-04-08 15:08] VITALS: RESP 18
== END 2021-04-08 15:10 | disposition home or self-care (01) ==
PROVIDERS: Emergency Provider Physician Assistant
DX: K02.9 Dental caries, unspecified (principal); F17.210 Nicotine dependence, cigarettes, uncomplicated
CPT/HCPCS: 99282

== ENCOUNTER 2022-11-16 08:17 | Emergency (ER) | payer SELFPAY ==
[2022-11-16 08:21] VITALS: BP 124/80; PULSE 86; RESP 18; TEMP 36.4; O2SAT 98; BMI 25.7
--- NOTE | 2022-11-16 08:36 | CT_ITS ---
WS: [email or web address] CT HEAD NONCONTRAST HISTORY: fall, struck head TECHNIQUE: Contiguous axial imaging performed through the brain in 2.5 mm imaging. Bone and soft tiss ue windows. Sagittal and coronal reformats reviewed. All CT scans at [facility] use at least one of these dose optimization techniques: automated exposure control; mA and/or kV adjustment per pa tient size (includes targeted exams where dose is matched to clinical indication); or iterative recon struction. DLP: 1351.07 mGy.cm COMPARISON: None available. No acute intracranial hemorrhage, midline shift or mass effect. Prominent perivascular space RIGHT in ferior basal ganglia. No atrophy or prior infarcts or herniation. Ventricles: Normal size with no hydrocephalus. No inferior displacement of cerebellar tonsils. Paranasal sinuses: As visualized are clear. Mastoid air cells: Well pneumatized. Calvarium and scalp: Skull is intact with no soft tissue edema or swelling. CT/CT head wo con* [id number] IMPRESSION: Negative head CT.
--- NOTE | 2022-11-16 08:36 | CT_ITS ---
WS: [email or web address] CT CERVICAL SPINE HISTORY: fall 20ft, pain TECHNIQUE: Contiguous 2.5 mm axial imaging performed through the entire cervical spine. Sagittal and coronal reformats also performed. All CT scans at [facility] use at least one of these dose o ptimization techniques: automated exposure control; mA and/or kV adjustment per patient size (include s targeted exams where dose is matched to clinical indication); or iterative reconstruction. DLP: 1351.07 mGy.cm COMPARISON: None available. Normal cervical alignment. Craniocervical junction, atlantodental interval and C1-C2 alignment is nor mal. C2-C3: Normal. C3-C4: Normal. C4-C5: Normal. C5-C6: Normal. C6-C7: Normal. C7-T1: Normal. Soft tissues are normal. Lung apices are clear. CT/CT cervical spin wo con* [id number] IMPRESSION: Normal cervical spine.
--- NOTE | 2022-11-16 08:36 | CT_ITS ---
WS: [email or web address] CT THORACIC SPINE HISTORY: fall 20ft, pain TECHNIQUE: Contiguous 2.5 mm axial images are reviewed to thoracic spine. Images are reformatted in s agittal and coronal planes. All CT scans at [facility] use at least one of these dose optimiz ation techniques: automated exposure control; mA and/or kV adjustment per patient size (includes targ eted exams where dose is matched to clinical indication); or iterative reconstruction. DLP: 342.19 mGy.cm COMPARISON: None available. Normal thoracic alignment. No acute fractures are identified. There are small Schmorl's nodes defects along the endplates of several mid to lower thoracic vertebral bodies. The transverse processes and spinous processes are intact. Normal alignment of the spinous processes. T1-2: Normal. T2-3: Normal. T3-4: Normal. T4-5: Normal. T5-6: Normal. T6-7: Normal. T7-8: Normal. T8-9: Normal. T9-10: Normal. T10-11: Normal. T11-12: Normal. CT/CT thoracic spine recon [id number] IMPRESSION: Negative thoracic spine for acute fracture.
--- NOTE | 2022-11-16 08:36 | CT_ITS ---
WS: [email or web address] CT CHEST WITHOUT INTRAVENOUS CONTRAST HISTORY: fall 20ft, SOB, chest pain TECHNIQUE: Contiguous 5 mm axial imaging performed on the thorax. Coronal and sagittal reformats are submitted. All CT scans at [facility] use at least one of these dose optimization techniques: automated exposure control; mA and/or kV adjustment per patient size (includes targeted exams where dose is matched to clinical indication); or iterative reconstruction. CONTRAST: None DLP: 342.19 mGy.cm COMPARISON: None available. Lungs and central airway: Lungs are well-aerated. No pulmonary contusion or pneumothorax. No lacerati on. No lobar collapse. Pleura: Normal. No pleural effusion. Heart and pericardium: Normal size heart with no pericardial effusion. Mediastinum and cherry: No mediastinum or hilar adenopathy. Vessels: Unenhanced imaging is negative. Chest wall and lower neck: No soft tissue masses. Degenerative air in the sternoclavicular joints. Upper abdomen: Negative. Osseous structures: No fractures are identified. CT/CT chest wo con [id number] IMPRESSION: Negative chest CT. No pneumothorax or pulmonary contusion. Mediastinal structures including the aorta are limited without IV contrast.
--- NOTE | 2022-11-16 08:37 | ED_ITS ---
HPI - Fall General: Chief Complaint: Fall Stated Complaint: fell out of tree, back injury Time Seen by Provider: 11/16/22 08:21 Source: patient Mode of arrival: ambulatory Limitations: no limitations History of Present Illness: Patient is a 27-year-old male who presents to ED today for evaluation following a fall that occurred yesterday. Patient states he was in a tree cutting down branches when he accidentally fell. Patient states height was approximately 20 feet. Patient states he fell directly onto his back. Patient states he did hit his head but did not lose consciousness. He states he wanted to wait it out thus delaying medical evaluation but states when he woke up this morning he was having fairly significant chest and back pains as well as shortness of breath thus prompting his visit. complaint: fall Onset (ago): day(s) (yesterday) Fall from: from height (distance) (pt states around 20 feet ) Fall witnessed: yes, by bystander Place fall occurred: work Loss of consciousness: None Prolonged down time: no Symptoms prior to fall: none Context: tripped/slipped Location of injury: head, neck, chest and back Associated symptoms-after fall: Reports chest pain, headache(s) and neck pain; Denies abdominal pain or lightheadedness Review of Systems Eyes: Denies: change in vision Card: Reports: chest pain; Denies: palpitations, irregular heart rhythm, edema, swelling of feet/ankles, lightheadedness, syncope or pre-syncope Resp: Reports: dyspnea and pain on inspiration; Denies: wheezing or hemoptysis GI: Denies: abdominal pain Musc: Reports: neck pain, back pain and joint pain (R hip); Denies: extremity pain, extremity swelling or joint swelling Neuro: Reports: headache(s); Denies: numbness in extremities, weakness in extremities, sensory changes or dizziness PFSH ED PFSH: Medical History Major depressive disorder Smoker Surgical History H/O adenoidectomy H/O foot surgery Hx of tonsillectomy Myringotomy tube status Family History Other Diabetes Social History Smoking and tobacco status: heavy tobacco smoker cigarettes [ Other cigarette details: 1 to 1.5 pack per day] Alcohol intake: current Housing: House Physical Exam Const: COMMON NORMALS: no acute distress, patient oriented x3, no limitations, alert and well nourished GENERAL APPEARANCE: cooperative ORIENTATION/CONSCIOUSNESS: Yes awake, Yes oriented to person, Yes oriented to place and Yes oriented to time HENMT: COMMON NORMALS: normocephalic and atraumatic HEAD & SCALP: normal to inspection, normocephalic and atraumatic Eye: GENERAL EYE: appearance normal, both eyes and all related structures Neck/C-Spine: COMMON NORMALS: full ROM GENERAL: Yes normal visual inspection CERVICAL SPINE: Yes pain with cervical ROM, Yes Cervical spine tenderness, No step off deformity and No Paracervical muscle tenderness Chest: COMMONS NORMALS: normal inspection of the chest OTHER: TTP anterior chest wall Resp: COMMON NORMALS: normal respiratory effort and clear to auscultation bilaterally AUSCULTATION: clear to auscultation bilaterally Cardio: COMMON NORMALS: regular rate and regular rhythm RATE: regular rate RHYTHM: regular rhythm GI: COMMON NORMALS: Normal to inspection, nondistended, normoactive bowel sounds present, Soft to palpation and non-tender PALPATION: Yes Soft to palpation Back/Pelvis: THORACIC SPINE/UPPER BACK: Yes pain with ROM, Yes thoracic spinal tenderness, No paraspinal muscle tenderness and No paraspinal muscle spasm LUMBAR SPINE/LOWER BACK: No lumbar spinal tenderness, No paraspinal muscle tenderness and No paraspinal muscle spasm PELVIS: Yes buttocks normal SACROILIAC JOINTS: Yes SI joints normal SACRUM: no tenderness COCCYX: no tenderness Extremity: COMMON NORMALS: normal to inspection and full ROM GENERAL: Yes normal exam except as noted RIGHT LOWER EXTREMITY: Yes hip joint Right hip: Yes palpation (TTP posteriolateral ) and Yes neurovascular exam (normal) Neuro: MANE COMA SCALE: document GCS findings [place] coma scale eye opening: Spontaneous [place] coma scale verbal response: Orientated [place] coma scale motor response: Obey commands [place] coma scale total score: 15 COMMON NORMALS: patient oriented x3, moves all extremities, no focal motor deficits, no sensory deficits noted and gait normal SENSORIUM/ORIENTATION: Yes alert, Yes oriented to person, Yes oriented to place and Yes oriented to time Skin: COMMON NORMALS: no rashes or lesions noted GENERAL SKIN EXAM: no rashes or lesions noted Course Vital Signs: Vital signs: Vital Signs Temperature 97.5 F L 11/16/22 08:21 Pulse Rate 86 11/16/22 08:21 Respiratory Rate 18 11/16/22 08:21 Blood Pressure 124/80 11/16/22 08:21 Pulse Oximetry 98 11/16/22 08:21 Oxygen Delivery Me thod 11/16/22 08:21 MDM - Fall Medical Decision Making CTs/XRs negative. Recommend conservative treatment at home. Return ED precautions given. Lab Data Radiology Impressions Cervical Spine CT 11/16/22 08:36 IMPRESSION: Normal cervical spine. Chest CT 11/16/22 08:36 IMPRESSION: Negative chest CT. No pneumothorax or pulmonary contusion. Mediastinal structures including the aorta are limited without IV contrast. Head CT 11/16/22 08:36 IMPRESSION: Negative head CT. Thoracic Spine CT 11/16/22 08:36 IMPRESSION: Negative thoracic spine for acute fracture. Discharge Plan Discharge Patient Disposition: Home Clinical Impression: Fall from tree Qualifiers: Encounter type: initial encounter Qualified Code(s): W14.XXXA - Fall from tree, initial encounter Chest wall contusion Qualifiers: Encounter type: initial encounter Laterality: unspecified laterality Qualified Code(s): S20.219A - Contusion of unspecified front wall of thorax, initial encounter Condition: Stable Prescriptions: No Action Tylenol Extra Strength 500 mg Tablet 1,000 mg PO PRN Discharge Orders: Discharge ED (Routine); Ordered 11/16/22 Ordered By: Mikaela Sutherland Stand Alone Forms: Work/School Release Coding Level of Care Code ED Field Mechanical Meter Tester for Chg Fwd Exam Comprehensive
--- NOTE | 2022-11-16 09:13 | XRR_ITS ---
PROCEDURE INFORMATION: Exam: XR Right Hip Exam date and time: 11/16/2022 9:40 AM Age: 27 years old Clinical indication: Injury or trauma; Fall; Blunt trauma (contusions or hematomas); Right; Hip; Additional info: Fall/trauma; One view pelvis too please TECHNIQUE: Imaging protocol: Radiologic exam of the Right hip. Views: 1 view hip with pelvis when performed. COMPARISON: CR XR KUB [id number] 04/17/2019 8:21 PM FINDINGS: Bones/joints: Unremarkable. No acute fracture. Soft tissues: Unremarkable. XR/XR hip RT 2-3V wo/w pel* [id number] IMPRESSION: No acute findings.
== END 2022-11-16 10:08 | disposition home or self-care (01) ==
PROVIDERS: Emergency Provider Physician Assistant
DX: S20.219A Contusion of unspecified front wall of thorax, initial encounter (principal); F17.210 Nicotine dependence, cigarettes, uncomplicated; W14.XXXA Fall from tree, initial encounter
CPT/HCPCS: 70450; 71250; 72125; 73502; 99285